=== PATIENT | female | born 1985 | race Two or more races ===

== ENCOUNTER 2018-07-05 12:33 | Outpatient (CLI) | payer OTHER ==
[~2018-07-05 12:33] MED LIST: MAXFE CAPLET1 EACH PO
== END 2018-07-05 18:29 | disposition home or self-care (01) ==
LOC: LAB 12:33
DX: D50.0 Iron deficiency anemia secondary to blood loss (chronic) (principal); N93.8 Other specified abnormal uterine and vaginal bleeding; D51.1 Vitamin B12 deficiency anemia due to selective vitamin B12 malabsorption with proteinuria; D51.0 Vitamin B12 deficiency anemia due to intrinsic factor deficiency; D26.1 Other benign neoplasm of corpus uteri; E06.3 Autoimmune thyroiditis; D50.8 Other iron deficiency anemias; D51.8 Other vitamin B12 deficiency anemias; I10 Essential (primary) hypertension; E03.8 Other specified hypothyroidism; D68.8 Other specified coagulation defects; K90.89 Other intestinal malabsorption

== ENCOUNTER 2019-08-02 20:49 | Emergency (ER) | payer OTHER ==
[~2019-08-02] VITALS: Ht 160 cm; Wt 77.1 kg
== END 2019-08-02 22:54 | disposition home or self-care (01) ==
LOC: ER 20:49
DX: O20.8 Other hemorrhage in early pregnancy (principal); Z34.81 Encounter for supervision of other normal pregnancy, first trimester

== ENCOUNTER 2019-08-12 07:00 | Day surgery (SDC) | payer OTHER | END 2019-08-12 15:10 | disposition home or self-care (01) | LOC: CIR.AMB 07:00 | DX: O02.1 Missed abortion (principal) ==

== ENCOUNTER 2021-01-28 18:46 | Emergency (ER) | payer OTHER ==
[~2021-01-28] VITALS: Ht 160 cm; Wt 77.1 kg
[2021-01-28] MEDS ORDERED: PRENATABS FA T1 EACH (19:10)
== END 2021-01-28 22:16 | disposition home or self-care (01) ==
LOC: ER 18:46
DX: O43.891 Other placental disorders, first trimester (principal); O20.8 Other hemorrhage in early pregnancy; Z3A.09 9 weeks gestation of pregnancy

== ENCOUNTER 2025-08-10 11:56 | Emergency (ER) | payer OTHER ==
[~2025-08-10] VITALS: Ht 160 cm; Wt 62.6 kg
[~2025-08-10 11:56] MED LIST changes: +PRENATABS FA T1 EACH
[2025-08-10 15:09] LABS: URINE APPEARANCE Cloudy; URINE BACTERIA 941.9 uL (0.0-1933); URINE BILIRRUBIN Negative (NEGATIVE); URINE BLOOD Negative; URINE COLOR Yellow; URINE EPITHELIAL CELLS 80.1 uL (0.0-38.8); URINE GLUCOSE Negative (NEGATIVE); URINE KETONE Negative (NEGATIVE); URINE LEUKOCYTE Trace; URINE NITRATE Negative; URINE PROTEIN Negative (NEGATIVE); URINE RBC 8.3 uL (0.0-20.8); URINE UROBILINOGEN 0.2 E.U./dl; URINE WBC 32.1 uL (0.0-23.2)
[2025-08-10 15:16] LABS: BASO % 0.8 % (0.1-1.2); EOS # 0.10 (0.04-0.54); EOS % 1.7 % (0.7-7.0); LYMPH # 1.66 (1.18-3.74); LYMPH % 27.8 % (19.3-53.1); MEAN PLATELET VOLUME 9.90 fl (9.4-12.4); MONO # 0.64 (0.24-0.82); MONO % 10.7 % (4.7-12.5); NEUT # 3.52 (1.56-6.13); NEUT % 58.8 % (34.0-71.1); RED CELL DISTRIBUTION WIDTH 18.4 % (11.6-14.4)
[2025-08-10 15:21] LABS: URINE CAST 0.14 uL (0.0-1.40)
[2025-08-10 15:44] LABS: INR 1.0
[2025-08-10 15:58] LABS: ALT/SGPT 45.0 U/L (12-78); AST/SGOT 27.0 U/L (15-37); BILIRUBIN TOTAL 0.34 mg/dL (0.3-1.2); BUN CREA RATIO 13.0 (7.0-25.0); CREATININE SERUM 0.67 mg/dL (0.55-1.02); GFR 96.52; GLOBULINA 4.6 G/DL (2.4-3.5); GLUCOSE FASTING 84.0 mg/dL (65-100); OSMOLALITY SERUM 274.0 MOSM/KG (275-295)
[2025-08-10] MEDS ORDERED: FERROUS SULFAT325 M2 PO (18:30)
== END 2025-08-10 19:13 | disposition home or self-care (01) ==
LOC: ER 11:57
PROVIDERS: Physician Assistant Medical
DX: D50.8 Other iron deficiency anemias (principal)